=== PATIENT | male | born 1970 | race Caucasian/White ===

== ENCOUNTER 2020-03-06 00:20 | Outpatient (CLI) | payer OTHER, SELFPAY ==
[2020-03-06 17:31] LABS: SARS-CoV-2 RNA PCR Negative
== END 2020-03-06 00:21 | disposition home or self-care (01) ==
LOC: ANHCOVIDDT 00:21
PROVIDERS: PCP Internal Medicine; Visit Provider Internal Medicine Gastroenterology
DX: Z01.812 Encounter for preprocedural laboratory examination (principal); Z20.828 Contact with and (suspected) exposure to other viral communicable diseases
CPT/HCPCS: 87635; C9803; U0003

== ENCOUNTER 2020-03-08 01:45 | Day surgery (SDC) | payer OTHER, SELFPAY ==
[2020-03-02 08:30] VITALS: BMI 29.9
[2020-03-08 06:51] VITALS: BP 124/88; PULSE 74; RESP 12; TEMP 36.7; O2SAT 98
--- NOTE | 2020-03-08 06:58 | PM.HPGS ---
History of Present Illness History of Present Illness Consent: Risks, benefits, and alternatives have been discussed and questions answered. Patient agrees to proceed with procedure. Chief complaint: neoplasm screening Narrative: Erasmo Vincent is a 50 year old male referred for screening colonoscopy. Patient's mother in her 50s from colon cancer. Patient did have a colonoscopy 7 years ago by another examiner reportedly was normal. Patient is asymptomatic except for occasional episode of hematochezia which he describes as bright red blood on toilet paper. PMFSH Past Medical History Medical History (Updated 03/08/20 @ 06:59 by Elliott Martinez MD) Dyslipidemia Surgical History Surgical History (Updated 03/08/20 @ 06:59 by Elliott Martinez MD) History of tonsillectomy and adenoidectomy Meds Home Medications and Allergies Home Medications Medication Instructions Recorded Confirmed Type No Home Medications 03/02/20 03/08/20 History Allergies Allergy/AdvReac Type Severity Reaction Status Date / Time No Known Allergies Allergy Verified 03/08/20 06:50 Vital Signs Vital Signs - 24 hr 03/08/20 06:51 Temperature 36.7 C Pulse Rate 74 Respiratory Rate 12 Blood Pressure 124/88 Pulse Oximetry 98 Exam Const: Orientation/consciousness: patient oriented x3 Resp: Auscultation: clear to auscultation bilaterally Cardio: Rate: regular rate Rhythm: regular rhythm Heart sounds: no murmurs GI: GI Palp: Yes Soft to palpation, No Tenderness to palpation present (GI), Yes No hepatosplenomegaly present and No Palpable mass present Auscultation: normal bowel sounds Neuro: General: patient oriented x3 and no focal motor deficits Extrem: General: no pedal edema Assessment and Plan Additional Plan screening colonoscopy in high risk patient mother having colon cancer in her 50s
[2020-03-08] MEDS: LACTATED RINGERS 1,000 ML 150 ML IV CONT (07:04)
--- NOTE | 2020-03-08 07:09 | WPDANESEPPF ---
Anes - Initial Pre Proc Eval Procedure: Operation Date: 03/08/20 08:00 Proposed Procedures p Screening Colonoscopy - Elliott Martinez MD Date/Time: 03/08/20 07:09 Surgeon: Elliott Martinez MD Pre Op Diagnosis: neoplasm screening Patient Data Age: 50 Gender: M Height: 6 ft Weight: 98.3 kg Last Vital Signs Temp 36.7 C 03/08/20 06:51 Pulse 74 03/08/20 06:51 Resp 12 03/08/20 06:51 BP 124/88 03/08/20 06:51 Pulse Ox 98 03/08/20 06:51 Allergies Allergy/AdvReac Type Severity Reaction Status Date / Time No Known Allergies Allergy Verified 03/08/20 06:50 Home Medications Medication Instructions Recorded Confirmed Type No Home Medications 03/02/20 03/08/20 History Patient hx anesthesia problems: none Family hx anesthesia problems: none PMFSH Past Medical History Medical History (Updated 03/08/20 @ 07:09 by Jordi Carlton MD) Dyslipidemia Overweight Surgical History Surgical History History of tonsillectomy and adenoidectomy Anes - Eval Final PreProcedure Day of Procedure 03/08/20 07:09 Patient weight: overweight Heart: regular rate and rhythm Lungs: clear to auscultation Airway: Mallampati scale class II Neurological: alert and oriented Last oral intake: >/= 8 hours ASA classification: II Emergent: no Anesthetic plan: proceed Anesthesia type and monitoring: general GIVS and standard monitoring Informed Consent: The patient's anesthetic plan and its attendant risks and benefits were discussed with the patient/family/POA. Questions were solicited and answers provided to the satisfaction of the patient/family/POA.
[2020-03-08 08:19] VITALS: BP 114/79; PULSE 70; RESP 18; O2SAT 96
[2020-03-08 08:29] VITALS: BP 103/67; PULSE 66; RESP 16; O2SAT 97
[2020-03-08 08:39] VITALS: BP 110/76; PULSE 60; RESP 17; O2SAT 97
== END 2020-03-08 09:05 | disposition home or self-care (01) ==
PROVIDERS: PCP Internal Medicine; Visit Provider Internal Medicine Gastroenterology
PROC: 0DJD8ZZ Inspection of Lower Intestinal Tract, Via Natural or Artificial Opening Endoscopic (ICD-10-PCS; CPT 45378; principal; 2020-03-08 08:00)
DX: Z12.11 Encounter for screening for malignant neoplasm of colon (principal); D12.0 Benign neoplasm of cecum; K64.8 Other hemorrhoids; K64.4 Residual hemorrhoidal skin tags; E78.5 Hyperlipidemia, unspecified
CPT/HCPCS: 45385; 88305; J2704; J7120